=== PATIENT | male | born 1965 | race Caucasian/White ===

== ENCOUNTER 2016-10-11 13:52 | Emergency (ER) | payer MEDICAID ==
[~2016-10-11] VITALS: Ht 180.3 cm; Wt 79.7 kg
[2016-10-11 14:03] VITALS: BP 127/73
[2016-10-11] MEDS ORDERED: DIAZEPAM 5 MG TABLET ONE (14:57)
[2016-10-11] MEDS ORDERED: KETOROLAC 30 MG/1 ML ONE (14:57)
[2016-10-11] MEDS ORDERED: KETOROLAC 30 MG/1 ML IM ONE (15:00)
[2016-10-11] MEDS ORDERED: DIAZEPAM 5 MG TABLET PO ONE (15:00)
== END 2016-10-11 15:49 | disposition home or self-care (01) ==
LOC: ED 15:05
DX: G89.29 Other chronic pain (principal); M54.5 Low back pain
CPT/HCPCS: 96372; 99283; J1885

== ENCOUNTER → 2017-01-19 | Outpatient (CLI) | payer MEDICAID | END | disposition home or self-care (01) | LOC: CFH 15:39 | PROVIDERS: ATTEND Nurse Practitioner Family | DX: Z12.2 Encounter for screening for malignant neoplasm of respiratory organs (principal); I25.10 Atherosclerotic heart disease of native coronary artery without angina pectoris; R91.1 Solitary pulmonary nodule; F17.210 Nicotine dependence, cigarettes, uncomplicated | CPT/HCPCS: G0297 ==

== ENCOUNTER 2017-01-26 09:56 | Emergency (ER) | payer MEDICAID ==
[~2017-01-26] VITALS: Ht 180.3 cm; Wt 80.0 kg
[2017-01-26 10:01] VITALS: BP 122/74
== END 2017-01-26 10:52 | disposition home or self-care (01) ==
LOC: ED 10:48
DX: J01.00 Acute maxillary sinusitis, unspecified (principal)
CPT/HCPCS: 99283

== ENCOUNTER 2017-02-10 09:54 | Emergency (ER) | payer MEDICAID ==
[~2017-02-10] VITALS: Ht 180.3 cm; Wt 81.3 kg
[2017-02-10 09:56] VITALS: BP 121/83
[2017-02-10] MEDS ORDERED: IBUP-1222 PO (10:12)
== END 2017-02-10 11:07 | disposition home or self-care (01) ==
LOC: ED 10:44
DX: J30.2 Other seasonal allergic rhinitis (principal); Z88.0 Allergy status to penicillin
CPT/HCPCS: 71020; 99284